=== PATIENT | female | born 1980 | race Caucasian/White ===

== ENCOUNTER 2019-04-29 04:42 | Emergency (ER) | payer BC ==
[~2019-04-29] VITALS: Ht 167.6 cm; Wt 72.1 kg
[2019-04-29 04:45] VITALS: Ht 167.6 cm; Wt 72.1 kg
[2019-04-29 05:35] LABS: BASOPHIL % 0.2 % (0-2); PLATELET COUNT 293 x10^3mcL (130-400); RED CELL DISTRIBUTION WIDTH 13.3 % (11.5-14.5)
[2019-04-29 05:39] LABS: CALCIUM 8.8 mg/dL (8.5-10.1); CARBON DIOXIDE 25.7 mmol/L (21-32); CHLORIDE SERUM 108 mmol/L (98-107); CREATININE SERUM 0.6 mg/dL (0.6-1.0); GFR1 > 60 mL/min; GLUCOSE SERUM 114 mg/dL (74-106); POTASSIUM SERUM 3.7 mmol/L (3.5-5.1); SODIUM SERUM 147 mmol/L (136-145)
[2019-04-29 05:43] LABS: ALBUMIN 4.1 g/dL (3.4-5.0); ALKALINE PHOSPHATASE 66 U/L (46-116); ALT/SGPT 9 U/L (14-59); AST/SGOT 8 U/L (15-37); BILIRUBIN TOTAL 0.33 mg/dL (0.20-1.00); LIPASE 113 IU/L (73-393)
[2019-04-29 06:40] VITALS: BP 116/60
== END 2019-04-29 06:40 | disposition home or self-care (01) ==
LOC: ED 04:42
PROVIDERS: Emergency Medicine
DX: R11.2 Nausea with vomiting, unspecified (principal)
CPT/HCPCS: J2405; J7030